=== PATIENT | female | born 1955 | race Hispanic/Latino ===

== ENCOUNTER 2019-07-15 10:03 | Outpatient (CLI) | payer BC, SELFPAY ==
--- NOTE | ~2019-07-15 | XR_ITS ---
EXAMINATION: XR chest 2V 07/15/2019 10:19 INDICATION: Pneumonia, cough and shortness of breath. PROCEDURE: 2 view chest COMPARISON: Comparison to multiple prior studies sequentially, with oldest reviewed study dated 08/2015. FINDINGS: The lungs are clear. The cardiomediastinal silhouette is within normal limits. There are no pleural effusions. There is no pneumothorax suspected. IMPRESSION: 1: NO ACUTE CARDIOPULMONARY DISEASE. Reviewed, dictated and finalized at location B. 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
== END 2019-07-15 10:04 | disposition home or self-care (01) ==
LOC: ANHIMG 10:07
PROVIDERS: PCP Internal Medicine; Visit Provider Internal Medicine
DX: J18.9 Pneumonia, unspecified organism (principal)
CPT/HCPCS: 71046

== ENCOUNTER → 2019-12-28 12:42 | Outpatient (CLI) | payer BC, SELFPAY ==
--- NOTE | ~2019-12-28 | MM_ITS ---
EXAMINATION: MM screening elliott BI w billy HISTORY: Screening mammogram TECHNIQUE: Craniocaudal and mediolateral oblique 3-D tomosynthesis images were obtained and synthetic 2-D images were generated. CAD analysis was submitted and interpreted. COMPARISON: 12/03/2018, 11/23/2017, 11/17/2016 bilateral digital screening mammogram examinations BREAST PARENCHYMAL COMPOSITION: There are scattered areas of fibroglandular density. FINDINGS: There is no evidence of suspicious mass, calcification, or architectural distortion to sugg est malignancy in either breast. There has been no suspicious interval change. IMPRESSION: 1. No mammographic evidence of malignancy. 2. Recommend routine screening mammography in one year. BI-RADS Category 1: Negative Reviewed, dictated and finalized at location A.
== END ==
PROVIDERS: Visit Provider Nurse Practitioner
DX: Z12.31 Encounter for screening mammogram for malignant neoplasm of breast (principal)
CPT/HCPCS: 77063; 77067

== ENCOUNTER 2020-04-09 00:06 | Outpatient (CLI) | payer BC, SELFPAY ==
[2020-04-09 20:45] LABS: SARS-CoV-2 RNA PCR Negative
== END 2020-04-09 00:07 | disposition home or self-care (01) ==
LOC: ANHCOVIDDT 00:06
PROVIDERS: PCP Internal Medicine; Visit Provider Internal Medicine Gastroenterology
DX: Z01.812 Encounter for preprocedural laboratory examination (principal); Z20.828 Contact with and (suspected) exposure to other viral communicable diseases
CPT/HCPCS: 87635; C9803; U0003

== ENCOUNTER 2020-04-12 00:38 | Day surgery (SDC) | payer BC, SELFPAY ==
[2020-04-03 08:43] VITALS: BMI 28.0
[2020-04-12 06:52] VITALS: BP 121/84; PULSE 84; RESP 20; TEMP 36.6; O2SAT 97
[2020-04-12] MEDS: LACTATED RINGERS 1,000 ML 150 ML IV CONT (07:10)
--- NOTE | 2020-04-12 07:43 | WPDANESEPPF ---
Anes - Initial Pre Proc Eval Procedure: Operation Date: 04/12/20 08:00 Proposed Procedures p Screening Colonoscopy - Sundeep Ha DO Date/Time: 04/12/20 07:43 Surgeon: Sundeep Ha DO Pre Op Diagnosis: Neoplasm Screening Patient Data Age: 64 Gender: F Height: 5 ft 2 in Weight: 69.2 kg Last Vital Signs Temp 97.9 F 04/12/20 06:52 Pulse 84 04/12/20 06:52 Resp 20 04/12/20 06:52 BP 121/84 04/12/20 06:52 Pulse Ox 97 04/12/20 06:52 Allergies Allergy/AdvReac Type Severity Reaction Status Date / Time No Known Allergies Allergy Verified 04/12/20 06:47 Home Medications Medication Instructions Recorded Confirmed Type ibandronate 150 mg tablet 150 mg PO MONTHLY #1 tablet 10/21/19 04/03/20 Rx alprazolam 0.5 mg tablet 0.5 mg PO DAILY PRN #30 tablet 02/22/20 04/12/20 Rx amlodipine 5 mg tablet 5 mg PO DAILY #90 tablet 02/22/20 04/03/20 Rx cholecalciferol (vitamin D3) 50 50 mcg PO DAILY #1 cap 02/22/20 04/03/20 Rx mcg (2,000 unit) capsule escitalopram oxalate 10 mg tablet See Rx Instructions .ROUTE 02/22/20 04/03/20 Rx .COMPLEX #30 tablet liraglutide (weight loss) 3 mg/0.5 See Rx Instructions SUBCUT 02/22/20 04/03/20 Rx mL (18 mg/3 mL) subcut pen injector .COMPLEX #15 ml omeprazole 40 mg capsule,delayed 40 mg PO DAILY #90 cap 02/22/20 04/03/20 Rx release pen needle, diabetic 33 gauge x #100 ea 03/05/20 Rx 1/4 levocetirizine [Xyzal] 5 mg PO DAILY 04/03/20 04/03/20 History Patient hx anesthesia problems: none Family hx anesthesia problems: none PMFSH Past Medical History Medical History (Updated 04/12/20 @ 07:42 by Jesus Ramos MD) Arthritis Essential hypertension Gastroesophageal reflux disease Hyperlipidemia Family History Family History Father Family history of osteoporosis Family history of cardiovascular disease Patient's father is in good health, Onset Age: 85 Acute myocardial infarction Mother Hypertension Patient's mother is in good health Family history of arthritis Family history of elevated blood lipids Social History Social History Smoking packs per day: 1 Smoking cigarettes per day: 20.0 Years smoked: 35 Smoking pack-years: 35.00 Smoking status: Former smoker Tobacco type: cigarettes Second hand tobacco smoke exposure: No Smoking end date: 05/11/00 Alcohol intake: never Substance use: never Substance use type: does not use Living arrangements: with family Spiritual care concerns: No Anes - Eval Final PreProcedure Day of Procedure 04/12/20 07:43 Patient weight: overweight Heart: regular rate and rhythm Lungs: clear to auscultation Airway: Mallampati scale class II Neurological: alert and oriented Last oral intake: >/= 8 hours ASA classification: III Emergent: no Anesthetic plan: proceed Anesthesia type and monitoring: general GIVS and standard monitoring Informed Consent: The patient's anesthetic plan and its attendant risks and benefits were discussed with the patient/family/POA. Questions were solicited and answers provided to the satisfaction of the patient/family/POA.
[2020-04-12] MEDS: ONDANSETRON INJ 4 MG/2 ML VIAL IV PUSH ×2 (08:01→12:05)
--- NOTE | 2020-04-12 09:53 | WPDGICN ---
Assessment and Plan Assessment and plan (1) Encounter for screening colonoscopy: Code(s): Z12.11 - Encounter for screening for malignant neoplasm of colon Status: Acute (2) History of colon polyps: Code(s): Z86.010 - Personal history of colonic polyps Status: Acute Assessment and Plan: Patient has a history of colon polyps 6 years ago. Plan is for surveillance colonoscopy now and to be considered in the future. GI Consult Note Consult date/time: 04/12/20 09:53 HPI: Johanny Odell is a 64 year old female Seen in evaluation in Dr. Ha's incapacitation today. Patient presents for colonoscopy. Patient has a history of colon polyps removed by Dr. street 6 years ago. She states that her current weight appetite bowel movements are normal. She denies abdominal pain. She has had no bleeding. Family history is noncontributory. [facility] Past Medical History Medical History (Updated 04/12/20 @ 09:55 by Sundeep Workman MD) Arthritis Essential hypertension Gastroesophageal reflux disease Hyperlipidemia Family History Family History Father Family history of osteoporosis Family history of cardiovascular disease Patient's father is in good health, Onset Age: 85 Acute myocardial infarction Mother Hypertension Patient's mother is in good health Family history of arthritis Family history of elevated blood lipids Social History Social History Smoking packs per day: 1 Smoking cigarettes per day: 20.0 Years smoked: 35 Smoking pack-years: 35.00 Smoking status: Former smoker Tobacco type: cigarettes Second hand tobacco smoke exposure: No Smoking end date: 05/11/00 Alcohol intake: never Substance use: never Substance use type: does not use Living arrangements: with family Spiritual care concerns: No Meds Home Medications and Allergies Home Medications Medication Instructions Recorded Confirmed Type ibandronate 150 mg tablet 150 mg PO MONTHLY #1 tablet 10/21/19 04/03/20 Rx alprazolam 0.5 mg tablet 0.5 mg PO DAILY PRN #30 tablet 02/22/20 04/12/20 Rx amlodipine 5 mg tablet 5 mg PO DAILY #90 tablet 02/22/20 04/03/20 Rx cholecalciferol (vitamin D3) 50 50 mcg PO DAILY #1 cap 02/22/20 04/03/20 Rx mcg (2,000 unit) capsule escitalopram oxalate 10 mg tablet See Rx Instructions .ROUTE 02/22/20 04/03/20 Rx .COMPLEX #30 tablet liraglutide (weight loss) 3 mg/0.5 See Rx Instructions SUBCUT 02/22/20 04/03/20 Rx mL (18 mg/3 mL) subcut pen injector .COMPLEX #15 ml omeprazole 40 mg capsule,delayed 40 mg PO DAILY #90 cap 02/22/20 04/03/20 Rx release pen needle, diabetic 33 gauge x #100 ea 03/05/20 Rx 1/4 levocetirizine [Xyzal] 5 mg PO DAILY 04/03/20 04/03/20 History Allergies Allergy/AdvReac Type Severity Reaction Status Date / Time No Known Allergies Allergy Verified 04/12/20 06:47 Vital Signs Vital Signs - 24 hr 04/12/20 06:52 Temperature 97.9 F Pulse Rate 84 Respiratory Rate 20 Blood Pressure 121/84 Pulse Oximetry 97 Exam Narrative: Exam Narrative: Physical exam reveals patient be alert. Vital signs stable. HEENT exam unremarkable. Lungs are clear to auscultation and percussion. Heart is without murmur or extra sounds. Abdominal exam bowel sounds present soft nontender with no organomegaly. Digital external rectal exam is normal.
[2020-04-12 11:45] VITALS: BP 114/72; PULSE 74; RESP 20; O2SAT 97
[2020-04-12 11:55] VITALS: BP 124/70; PULSE 73; RESP 20; O2SAT 97
[2020-04-12 12:05] VITALS: BP 118/78; PULSE 81; RESP 20; O2SAT 100
== END 2020-04-12 12:31 | disposition home or self-care (01) ==
PROVIDERS: PCP Internal Medicine; Visit Provider Internal Medicine Gastroenterology
PROC: 0DJD8ZZ Inspection of Lower Intestinal Tract, Via Natural or Artificial Opening Endoscopic (ICD-10-PCS; CPT 45378; principal; 2020-04-12 08:00)
DX: Z12.11 Encounter for screening for malignant neoplasm of colon (principal); Z86.010 Personal history of colon polyps; I10 Essential (primary) hypertension; E78.5 Hyperlipidemia, unspecified; K21.9 Gastro-esophageal reflux disease without esophagitis; Z87.891 Personal history of nicotine dependence
CPT/HCPCS: 45378; J2405; J2704; J7120

== ENCOUNTER 2020-07-13 13:32 | Outpatient (CLI) | payer BC, SELFPAY | END 2020-07-13 13:33 | disposition home or self-care (01) | LOC: ANHCOVIDVC 13:32 | PROVIDERS: PCP Internal Medicine | DX: Z23 Encounter for immunization (principal) | CPT/HCPCS: 0001A; 91300 ==

== ENCOUNTER 2020-08-03 13:21 | Outpatient (CLI) | payer BC, SELFPAY | END 2020-08-03 13:22 | disposition home or self-care (01) | LOC: ANHCOVIDVC 13:21 | PROVIDERS: PCP Internal Medicine | DX: Z23 Encounter for immunization (principal) | CPT/HCPCS: 0002A; 91300 ==

== ENCOUNTER 2020-09-17 11:42 | Outpatient (CLI) | payer BC, SELFPAY ==
--- NOTE | ~2020-09-17 | XR_ITS ---
XR_CERV2-3V_CR DATE: 09/17/2020 12:27 INDICATION: Neck and arm pain (radiculopathy) TECHNIQUE: AP, open-mouth, lateral views COMPARISON: None FINDINGS: There is normal alignment of the cervical spine. No fracture or dislocation or locked facet or prevertebral soft tissue swelling. Moderate loss of interspace height and mild spurring at C5-6, consistent with degenerative disc disea se. Remaining cervical interspaces are relatively well preserved. Uncovertebral joint spurring at C5-6. IMPRESSION: Moderate degenerative disc disease and uncovertebral joint spurring at C5-6 Reviewed, dictated and finalized at Location A. Reviewed, dictated and finalized at location A.
== END 2020-09-17 11:43 | disposition home or self-care (01) ==
PROVIDERS: PCP Internal Medicine; Visit Provider Internal Medicine
DX: M54.12 Radiculopathy, cervical region (principal); M50.322 Other cervical disc degeneration at C5-C6 level
CPT/HCPCS: 72040

== ENCOUNTER → 2021-01-30 15:49 | Outpatient (CLI) | payer BC, SELFPAY ==
--- NOTE | ~2021-01-30 | DEXA_ITS ---
Bone Density Report Name: Johanny Odell Age: 65 Sex: Female Ethnicity: Date of : 1955 Indication: postmenopausal osteoporosis; monitoring treatment; height loss; Referring Provider: Ron, Akiko Study: Bone densitometry was performed. Exam Date: January 30, 2021 Accession number: [id number] Bone Density: Region BMD T-score Z-score Classification AP Spine (L1-L4) 0.793 -2.3 -0.5 Osteopenia Femoral Neck (Left) 0.649 -1.8 -0.5 Osteopenia Total Hip (Left) 0.842 -0.8 0.2 Normal Femoral Neck (Right) 0.691 -1.4 -0.1 Osteopenia Total Hip (Right) 0.819 -1.0 0.0 Normal Total Hip Mean 0.831 -0.9 0.1 Normal World Health Organization criteria for BMD impression classify patients as: Normal (T-score at or above -1.0), Osteopenia (T-score between -1.0 and -2.5), or Osteoporosis (T-score at or below -2.5). 10-year Fracture Risk: FRAX not reported because: Treated for osteoporosis Previous Exams: Region Exam Age BMD T-score BMD Change BMD Change Date g/cm2 vs Baseline vs Previous AP Spine(L1-L4) 01/30/2021 65 0.793 -2.3 0.021 0.024* 12/03/2018 63 0.769 -2.5 -0.003 -0.050* 11/17/2016 61 0.819 -2.1 0.047* -0.004 09/11/2014 58 0.823 -2.0 0.051* 0.034* 08/13/2011 55 0.789 -2.3 0.017 -0.010 09/17/2009 53 0.800 -2.2 0.028* 0.028* 12/08/2006 51 0.772 -2.5 Total Hip(Left) 01/30/2021 65 0.842 -0.8 0.027 0.000 12/03/2018 63 0.842 -0.8 0.027 -0.025 11/17/2016 61 0.867 -0.6 0.052* -0.010 09/11/2014 58 0.878 -0.5 0.062* -0.003 08/13/2011 55 0.881 -0.5 0.066* -0.014 09/17/2009 53 0.895 -0.4 0.080* 0.080* 12/08/2006 51 0.815 -1.0 Total Hip(Right) 01/30/2021 65 0.819 -1.0 -0.011 0.010 12/03/2018 63 0.809 -1.1 -0.021 -0.028* 11/17/2016 61 0.838 -0.9 0.008 -0.023 09/11/2014 58 0.861 -0.7 0.031* -0.003 08/13/2011 55 0.863 -0.6 0.033* 0.025 09/17/2009 53 0.838 -0.8 0.009 0.009 12/08/2006 51 0.830 -0.9 *Denotes significance at 95% confidence level, LSC for AP Spine = 0.022 g/cm2, LSC for Total Hip = 0.027 g/cm2 Clinical Information Provided by Patient: Is being treated for osteopor
== END ==
PROVIDERS: PCP Internal Medicine; Visit Provider Nurse Practitioner
DX: Z13.820 Encounter for screening for osteoporosis (principal); M85.88 Other specified disorders of bone density and structure, other site; M85.851 Other specified disorders of bone density and structure, right thigh; M85.852 Other specified disorders of bone density and structure, left thigh
CPT/HCPCS: 77080

== ENCOUNTER → 2021-03-12 14:15 | Outpatient (CLI) | payer BC, SELFPAY ==
--- NOTE | ~2021-03-12 | MMUS_ITS ---
EXAMINATION: MM diagnostic elliott BI w billy, US breast BI limited HISTORY: Bilateral nipple pain TECHNIQUE: Additional 3-D tomosynthesis images of the breasts were performed and synthetic 2-D images were generated. CAD analysis was submitted and interpreted. High resolution bilateral breast ultraso und was performed. COMPARISON: Comparison to multiple prior studies sequentially, with oldest reviewed study dated 01/2016. BREAST PARENCHYMAL COMPOSITION: Breast composed of scattered areas of fibroglandular density. FINDINGS: MAMMOGRAPHIC FINDINGS: There are no suspicious masses, calcifications or architectural distortion in either breast to sugges t malignancy. ULTRASOUND: Limited bilateral breast ultrasound:. Normal heterogeneous echotexture without focal solid or cystic mass. IMPRESSION: 1. No evidence for malignancy in either breast. 2. Routine yearly screening mammogram and regular clinical breast examination are recommended. BI-RADS Category 1: Negative Reviewed, dictated and finalized at location A. IMPRESSION: 1. No evidence for malignancy in either breast. 2. Routine yearly screening mammogram and regular clinical breast examination a re recommended. BI-RADS Category 1: Negative
== END ==
PROVIDERS: Visit Provider Nurse Practitioner
DX: N64.4 Mastodynia (principal)
CPT/HCPCS: 76642; 77062; 77066; G0279

== ENCOUNTER 2021-05-24 07:45 | Outpatient (RCR) | payer BC, SELFPAY ==
[2021-05-24 12:01] VITALS: BP 139/69; PULSE 80; RESP 20; TEMP 36.4; O2SAT 99
[2021-05-24] MEDS: ACETAMINOPHEN 325 MG TABLET 650 MG PO (12:08)
[2021-05-24] MEDS: diphenhydrAMINE HCl CAP 25 MG CAPSULE PO (12:08)
[2021-05-24] MEDS: FAMOTIDINE 20 MG TABLET PO (12:08)
[2021-05-24 13:31] VITALS: BP 135/70; PULSE 70; O2SAT 99
== END 2021-05-24 17:00 ==
LOC: AMCINF 07:45
PROVIDERS: Visit Provider Internal Medicine Hematology & Oncology
DX: U07.1 COVID-19 (principal); I10 Essential (primary) hypertension
CPT/HCPCS: A9270; M0245; Q0245

== ENCOUNTER 2021-08-24 07:29 | Outpatient (CLI) | payer BC, SELFPAY ==
--- NOTE | ~2021-08-24 | XR_ITS ---
EXAM: XR lumbar spine 6V w bending HISTORY: M54.9 - Dorsalgia, unspecified RT LEG RADICULOPATHY COMPARISON: 12/17/2011. FINDINGS: Cholecystectomy clips. 5 nonrib-bearing lumbar-type vertebral bodies, with intact pedicles . Vertebral body heights maintained. 3 mm anterolisthesis of L5 on S1 that reduces slightly in extens ion. Bilateral pars defects at L5-S1. Aortic calcifications without evident aneurysm. Partially visua lized bowel gas pattern is normal. IMPRESSION: Grade 1 dynamic listhesis of L5 on S1. Bilateral L5-S1 pars defects. Reviewed, dictated and finalized at location K.
== END 2021-08-24 07:30 | disposition home or self-care (01) ==
LOC: ANHIMG 07:32
PROVIDERS: PCP Internal Medicine; Visit Provider Internal Medicine
DX: M54.9 Dorsalgia, unspecified (principal)
CPT/HCPCS: 72114

== ENCOUNTER 2022-04-08 15:01 | Emergency (ER) | payer BC, SELFPAY ==
[2022-04-08 15:10] VITALS: BP 123/68; PULSE 75; RESP 18; TEMP 36.4; O2SAT 98
--- NOTE | 2022-04-08 15:59 | ED.SKABFB ---
HPI - Skin/Abscess/Foreign Bdy General Chief complaint: Skin/Abscess/Foreign Body Stated complaint: Rash Time Seen by Provider: 04/08/22 15:52 Source: patient Mode of arrival: ambulatory Limitations: no limitations History of Present Illness HPI narrative: Patient presents today complaining of a 3 day history of rash to the right buttock that she bruises shingles. Associated symptoms include itching, pain, and bilaterally fatigue. States she gets shingles, usually on her buttock, every 2-3 months and has not had the opportunity to get a shingles vaccine because of this. Related Data Home Medications Medication Instructions Recorded Confirmed cetirizine 10 mg capsule (Zyrtec) 10 mg PO DAILY PRN Allergy Symptoms 11/26/20 04/08/22 Allergies Allergy/AdvReac Type Severity Reaction Status Date / Time No Known Allergies Allergy Verified 04/08/22 15:11 Review of Systems Review of Systems: CONSTITUTIONAL: Denies body aches, fever, chills, or sweats. EYES: Denies visual changes, redness, or discharge. ENT: Denies rhinorrhea, congestion, sore throat, or otalgia. CARDIOVASCULAR: Denies chest pain, palpitations, or edema. RESPIRATORY: Denies cough or dyspnea. GASTROINTESTINAL: Denies abdominal pain, nausea, vomiting, or diarrhea. GENITOURINARY: Denies dysuria or hematuria. SKIN: + Right buttock rash MUSCULOSKELETAL: Denies back pain, joint pain, or myalgia. NEUROLOGIC: Denies headache, numbness, tingling, or weakness. PSYCH: Denies depression or anxiety. [facility], [facility] Past Medical History Medical History Arthritis Essential hypertension Gastroesophageal reflux disease Hyperlipidemia Family History Family History Father Family history of osteoporosis Family history of cardiovascular disease Patient's father is in good health, Onset Age: 85 Acute myocardial infarction Mother Hypertension Patient's mother is in good health Family history of arthritis Family history of elevated blood lipids Social History Social History Smoking packs per day: 1 Smoking cigarettes per day: 20.0 Years smoked: 35 Smoking pack-years: 35.00 Smoking status: Unknown if ever smoked Tobacco type: cigarettes Second hand tobacco smoke exposure: No Smoking end date: 05/11/00 Alcohol intake: never Substance use: never Substance use type: does not use Spiritual care concerns: No Comments At time of signature, I have reviewed and agree with nursing past medical, surgical, social and family history unless otherwise noted. Please see nursing chart for further information. There is no relevant family history pertinent to the presenting complaint Exam Narrative: GENERAL: Well-appearing, well-nourished, and in no acute distress. HEAD: Normocephalic, atraumatic. EYES: EOMI. No redness or drainage. Conjunctivae normal. ENT: Mucous membranes pink and moist. NECK: Normal AROM. CHEST: No respiratory distress. EXTREMITIES: Normal range of motion. No edema. SKIN: Warm, dry. Capillary refill normal. Normal skin turgor. cluster of vesicles surrounded by erythema to the right medial buttock NEURO: No focal deficits. Alert and oriented x3. Gait steady. PSYCH: Normal affect. No signs of depression or anxiety. Course Course Level of Care: Express Care Visit Vital Signs Vital signs: Vital Signs Temperature 97.6 F 04/08/22 15:10 Pulse Rate 75 04/08/22 15:10 Respiratory Rate 18 04/08/22 15:10 Blood Pressure 123/68 04/08/22 15:10 Pulse Oximetry 98 04/08/22 15:10 Oxygen Delivery Room Air 04/08/22 15:10 Temperature 97.6 F 04/08/22 15:10 Pulse Rate 75 04/08/22 15:10 Respiratory Rate 18 04/08/22 15:10 Blood Pressure 123/68 04/08/22 15:10 Pulse Oximetry 98 04/08/22 15:10 Oxygen Delivery Room Air
== END 2022-04-08 16:04 | disposition home or self-care (01) ==
PROVIDERS: Emergency Provider Nurse Practitioner; PCP Internal Medicine
DX: B02.9 Zoster without complications (principal); Z87.891 Personal history of nicotine dependence; M19.90 Unspecified osteoarthritis, unspecified site; I10 Essential (primary) hypertension; K21.9 Gastro-esophageal reflux disease without esophagitis; E78.5 Hyperlipidemia, unspecified
CPT/HCPCS: 99213; G0463

== ENCOUNTER 2022-05-23 16:40 | Emergency (ER) | payer BC, SELFPAY ==
[2022-05-23 16:52] VITALS: BP 124/69; PULSE 79; RESP 18; TEMP 36.4; O2SAT 100
--- NOTE | 2022-05-23 17:02 | ED.URI ---
HPI - URI/Sore Throat General Chief Complaint: Upper Respiratory Infection Stated Complaint: sorethroat,cough Time Seen by Provider: 05/23/22 16:55 Source: patient Mode of arrival: ambulatory Limitations: no limitations History of Present Illness HPI Narrative: Ms. Odell is a 66-year-old female patient presenting to clinic today with complaints of sore throat, cough, nasal congestion, body aches, and chills x1 day. States that she had COVID at the end of April but never had symptoms as she is having now and her COVID symptoms improved. She denies any fever. She denies any shortness of breath or chest pain. MD elicited complaint: cough, sore throat and nasal congestion Related Data Home Medications Medication Instructions Recorded Confirmed cetirizine 10 mg capsule (Zyrtec) 10 mg PO DAILY PRN Allergy Symptoms 11/26/20 05/23/22 Allergies Allergy/AdvReac Type Severity Reaction Status Date / Time No Known Allergies Allergy Verified 05/23/22 16:52 Review of Systems Review of Systems: Pertinent positives per HPI. Patient denies any fever, chills, rash, headache, visual changes, dizziness, cough, shortness of breath, chest pain, palpitations, nausea, vomiting, diarrhea, constipation, abdominal pain, or any urinary issues. [facility] Past Medical History Medical History Arthritis Essential hypertension Gastroesophageal reflux disease Hyperlipidemia Family History Family History Father Family history of osteoporosis Family history of cardiovascular disease Patient's father is in good health, Onset Age: 85 Acute myocardial infarction Mother Hypertension Patient's mother is in good health Family history of arthritis Family history of elevated blood lipids Social History Social History Smoking packs per day: 1 Smoking cigarettes per day: 20.0 Years smoked: 35 Smoking pack-years: 35.00 Smoking status: Unknown if ever smoked Tobacco type: cigarettes Second hand tobacco smoke exposure: No Smoking end date: 05/11/00 Alcohol intake: never Substance use: never Substance use type: does not use Spiritual care concerns: No Comments At the time of my signature, I reviewed and agree with the nursing past medical, surgical, social, and family history. There is no relevant family history pertinent to the patient complaint. Exam Narrative: General: Well-developed, well nourished, in no apparent distress Head: Normocephalic, atraumatic Eyes: Pupils equally round and reactive to light bilaterally, EOM intact, sclera and conjunctive clear, no discharge, lids normal Ears: TMs intact and clear, ear canals clear, no drainage, grossly hearing normal. Nose: Nares patent, no discharge, no inflammation, no sinus tenderness. Mouth: Oral pharynx without lesions or masses, good dentition, MMM. Neck: Supple, trachea midline, no enlargement of anterior or posterior cervical nodes, no thyroid masses or goiter palpable. Cardio: Regular rate and rhythm, s1 and s2 normal, no murmur appreciated. Resp: Clear to auscultation bilaterally, no rhonchi, rales, wheezing or rubs Course Course Emergency Course: Portions of this record may have been created with voice recognition software. Level of Care: Express Care Visit Vital Signs Vital signs: Vital Signs Temperature 36.4 C 05/23/22 16:52 Pulse Rate 79 05/23/22 16:52 Respiratory Rate 18 05/23/22 16:52 Blood Pressure 124/69 05/23/22 16:52 Pulse Oximetry 100 05/23/22 16:52 Oxygen Delivery Room Air 05/23/22 16:52 Temperature 36.4 C 05/23/22 16:52 Pulse Rate 79 05/23/22 16:52 Respiratory Rate 18 05/23/22 16:52 Blood Pressure 124/69 05/23/22 16:52 Pulse Oximetry 100 05/23/22 16:52 Oxygen Delivery Room Air 05/23/22 16:52 Vital
== END 2022-05-23 17:30 | disposition home or self-care (01) ==
PROVIDERS: Emergency Provider Nurse Practitioner Family; PCP Internal Medicine
DX: B34.9 Viral infection, unspecified (principal); J02.0 Streptococcal pharyngitis; Z87.891 Personal history of nicotine dependence; I10 Essential (primary) hypertension; K21.9 Gastro-esophageal reflux disease without esophagitis; E78.5 Hyperlipidemia, unspecified; M19.90 Unspecified osteoarthritis, unspecified site
CPT/HCPCS: 87081; 87147; 87804; 87880; 99213; G0463

== ENCOUNTER 2022-07-02 13:33 | Outpatient (CLI) | payer BC, SELFPAY ==
--- NOTE | ~2022-07-02 | XR_ITS ---
EXAMINATION: XR chest 2V 07/02/2022 13:49 INDICATION: Preop evaluation PROCEDURE: 2 view chest COMPARISON: Comparison to multiple prior studies sequentially, with oldest reviewed study dated 09/21. FINDINGS: The lungs are clear. The cardiomediastinal silhouette is within normal limits. There are no pleural effusions. There is no pneumothorax suspected. There are cholecystectomy clips. IMPRESSION: 1: NO ACUTE CARDIOPULMONARY DISEASE. Reviewed, dictated and finalized at location B. 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
--- NOTE | 2022-07-02 13:56 | ECG_ITS ---
Measurements Intervals [place] Rate: 67 P: 70 FL: 120 QRS: 54 QRSD: 96 T: 60 QT: 396 QTc: 419 Interpretive Statements SINUS RHYTHM NO PREVIOUS ECG AVAILABLE FOR COMPARISON Electronically Signed On 07-02-2022 15:07:54 [employer] by Tamara Torres M.D.
== END 2022-07-02 13:34 | disposition home or self-care (01) ==
LOC: ANHIMG 13:36
PROVIDERS: PCP Internal Medicine; Visit Provider Nurse Practitioner Family
DX: Z01.818 Encounter for other preprocedural examination (principal)
CPT/HCPCS: 71046; 93005

== ENCOUNTER 2022-09-21 12:19 | Outpatient (CLI) | payer BC, SELFPAY ==
--- NOTE | ~2022-09-21 | CT_ITS ---
EXAMINATION: CT abdomen pelvis w con DATE: 09/21/2022 13:02 INDICATION: Abdominal pain TECHNIQUE: Computed tomography (CT) of the abdomen and pelvis was performed without intravenous contr ast. The dose-length product was 325.37 mGy-cm. Automated exposure control and iterative reconstructi on technique were employed. COMPARISON: None. FINDINGS: Lung bases are unremarkable. Heart size normal. No significant pleural or pericardial effus ion. Status post cholecystectomy with expected prominence of the bile ducts. The spleen, pancreas, ad renal glands and kidneys are unremarkable. Nonobstructive bowel pattern. Normal appendix. There is a 5.6 cm left adnexal cyst, most likely ovarian. No free fluid or free air. No significant vascular abn ormality. No lymphadenopathy. There is grade 1 spondylolisthesis at L5-S1 secondary to bilateral spon dylolysis. IMPRESSION: 1. Left adnexal cyst measuring 5.6 cm maximum dimension, most likely ovarian. Consider correlation wi ultrasound. Reviewed, dictated and finalized at location A. IMPRESSION: 1. Left adnexal cyst measuring 5.6 cm maximum dimension, most likely ovarian. C onsider correlation with ultrasound.
[2022-09-21 12:54] LABS: Estimated Glomerular Filt Rate > 60
== END 2022-09-21 12:20 | disposition home or self-care (01) ==
PROVIDERS: PCP Internal Medicine; Visit Provider Nurse Practitioner
DX: R10.9 Unspecified abdominal pain (principal)
CPT/HCPCS: 74177; Q9967

== ENCOUNTER → 2022-09-22 15:59 | Outpatient (CLI) | payer BC, SELFPAY ==
--- NOTE | ~2022-09-22 | MM_ITS ---
EXAMINATION: MM screening elliott BI w billy HISTORY: Screening mammogram TECHNIQUE: Craniocaudal and mediolateral oblique 3-D tomosynthesis images were obtained and synthetic 2-D images were generated. CAD analysis was submitted and interpreted. COMPARISON: 03/12/2021, 12/28/2019, 12/03/2018 BREAST PARENCHYMAL COMPOSITION:There are scattered areas of fibroglandular density. FINDINGS: No suspicious mass, calcification, or architectural distortion are identified in either daljit ast to suggest malignancy. There has been no suspicious interval change. IMPRESSION: No mammographic evidence of malignancy. Recommend routine screening mammography in one year. BI-RADS Category 1: Negative Reviewed, dictated and finalized at location .
== END ==
PROVIDERS: PCP Nurse Practitioner; Visit Provider Nurse Practitioner
DX: Z12.31 Encounter for screening mammogram for malignant neoplasm of breast (principal)
CPT/HCPCS: 77063; 77067

== ENCOUNTER 2022-09-25 07:35 | Outpatient (CLI) | payer BC, SELFPAY ==
--- NOTE | ~2022-09-25 | US_ITS ---
EXAMINATION: US pelvic complete DATE: 09/25/2022 08:31 INDICATION: Left adnexal cyst Comparison: Comparison to multiple prior studies sequentially, with oldest reviewed study dated 11/27. TECHNIQUE: Multiple transabdominal and endovaginal sonographic images of the pelvis performed. FINDINGS: The uterus measures 5.1 x 2.9 x 2.9 cm. The endometrial complex measures 4 mm. The right ovary measures 2 x 1.2 x 1.3 cm and the left ovary measures 5.6 x 3.8 x 4.5 cm. There is a left ovarian cyst measuring 5.3 x 3.6 x 4 cm There are small follicles in each ovary. Normal doppler signal in both ovaries. There is no free fluid in the pelvis. There are no abnormal masses seen on either side. IMPRESSION: 1. Simple left ovarian cyst measuring 5.3 cm. Reviewed, dictated and finalized at location D.
== END 2022-09-25 07:36 ==
LOC: GOSHIMG 07:37
PROVIDERS: PCP Nurse Practitioner; Visit Provider Nurse Practitioner
DX: N94.9 Unspecified condition associated with female genital organs and menstrual cycle (principal); N83.202 Unspecified ovarian cyst, left side
CPT/HCPCS: 76856

== ENCOUNTER 2022-11-27 10:08 | Outpatient (CLI) | payer BC, SELFPAY ==
--- NOTE | ~2022-11-27 | XR_ITS ---
AP and lateral views of the right tibia/fibula Clinical History: Pain Findings: No acute fracture or dislocation is seen. Osseous alignment is anatomic. Joint spaces are p reserved without significant erosive or degenerative change. Soft tissues are unremarkable. Impression: Unremarkable right tib-fib radiographs. Reviewed, dictated and finalized at [facility]. Impression: Unremarkable right tib-fib radiographs.
--- NOTE | ~2022-11-27 | XR_ITS ---
AP and lateral views of the right hip Clinical history: Pain Findings: No acute fracture or dislocation is seen. Osseous alignment is anatomic. The right hip join t and right SI joint are preserved. Soft tissues are unremarkable. Impression: No significant abnormality is seen. Reviewed, dictated and finalized at [facility]. Impression: No significant abnormality is seen.
== END 2022-11-27 10:09 | disposition home or self-care (01) ==
PROVIDERS: PCP Family Medicine; Visit Provider Family Medicine
DX: M13.0 Polyarthritis, unspecified (principal); M25.559 Pain in unspecified hip; M25.569 Pain in unspecified knee; M79.606 Pain in leg, unspecified
CPT/HCPCS: 73502; 73562; 73590

== ENCOUNTER 2023-01-07 18:01 | Emergency (ER) | payer BC, SELFPAY ==
[2023-01-07 18:13] VITALS: BP 152/73; PULSE 65; RESP 16; TEMP 36.5; O2SAT 100
[2023-01-07 18:14] VITALS: BP 152/73; PULSE 65; RESP 16; TEMP 36.5; O2SAT 100
--- NOTE | 2023-01-07 18:28 | ED.GENADULT ---
HPI - General Adult General Chief complaint: Urogenital-Female Stated complaint: Lt Side Pain Source: patient and RN notes reviewed Mode of arrival: ambulatory Limitations: no limitations History of Present Illness HPI narrative: 67 y/o female presented with c/o LUQ abdominal pain, onset today after lunch. States she ate a subway sandwich prior to the abdominal pain, and then had one episode of diarrhea. Pain is sharp stabbing and intermittent but frequent. Rates pain 8/10. Starting to feel nausea. Denies rash or injury, denies vomiting, hematochezia, melena, fever. Last meal was at lunch time. Has had similar symptoms a few months ago, but states it has never been this painful. Hx cholecystectomy; GERD Related Data Home Medications Medication Instructions Recorded Confirmed cetirizine 10 mg capsule (Zyrtec) 10 mg PO DAILY PRN Allergy Symptoms 11/26/20 01/07/23 ibandronate 150 mg tablet 150 mg PO DAILY 01/07/23 01/07/23 Allergies Allergy/AdvReac Type Severity Reaction Status Date / Time No Known Allergies Allergy Verified 01/07/23 18:12 Review of Systems Review of Systems: CONSTITUTIONAL: Denies body aches, fever, chills ENT: Denies rhinorrhea, congestion CARDIOVASCULAR: Denies chest pain, palpitations, or edema. RESPIRATORY: Denies cough or dyspnea. GASTROINTESTINAL: Endorses LUQ abdominal pain, nausea, Denies vomiting, diarrhea, hematochezia, melena GENITOURINARY: Denies dysuria, hematuria, or CVA tenderness. SKIN: Denies rash, itching, or wounds. MUSCULOSKELETAL: Denies back pain, joint pain, or myalgia. NEUROLOGIC: Denies headache, numbness, tingling, or weakness. All systems reviewed & are unremarkable except as noted in HPI and below PMFSH Past Medical History Medical History Arthritis Essential hypertension Gastroesophageal reflux disease Hyperlipidemia Family History Family History Father Family history of osteoporosis Family history of cardiovascular disease Patient's father is in good health, Onset Age: 85 Acute myocardial infarction Mother Hypertension Patient's mother is in good health Family history of arthritis Family history of elevated blood lipids Social History Social History Smoking packs per day: 1 Smoking cigarettes per day: 20.0 Years smoked: 35 Smoking pack-years: 35.00 Smoking status: Former smoker Tobacco type: cigarettes Second hand tobacco smoke exposure: No Smoking end date: 05/11/00 Alcohol intake: former Alcohol use details: occasionally Substance use: never Substance use type: does not use Lack of Transportation: No Lack of Food: Never True Current Housing: I Have Housing Concerned About Future Housing: No Difficulty Paying Gas/Electric Bills: No Difficulty Paying for Meds: No Currently Unemployed: No Education: High School Diploma/GED Difficulty w/ Childcare or Family Care: No Living arrangements: with family Spiritual care concerns: No Comments At time of signature, I have reviewed and agree with nursing past medical, surgical, social and family history unless otherwise noted. Please see nursing chart for further information. There is no relevant family history pertinent to the presenting complaint Exam Narrative: GENERAL: Appears in pain, in no acute distress. EYES: EOMI. Conjunctivae normal. ENT: Mucous membranes pink and moist. CHEST: No respiratory distress. Clear to auscultation. HEART: Regular rate and rhythm. No murmur appreciated. Normal peripheral pulses. ABDOMEN: abd soft, nondistended, normal active bowel sounds. Tender abdomen: LUQ; guarding noted and frequent grimace. No redness or bruising, no rebound tenderness, asymmetry, pulsatile mass, or rigidity EXTREMITIES: Normal range of motion. No edema. SKIN: Warm, dry, n
== END 2023-01-07 18:55 | disposition short-term general hospital (02) ==
LOC: EXPTROY 18:03
PROVIDERS: Emergency Provider Nurse Practitioner Family; PCP Family Medicine
DX: R10.12 Left upper quadrant pain (principal); Z87.891 Personal history of nicotine dependence; M19.90 Unspecified osteoarthritis, unspecified site; I10 Essential (primary) hypertension; K21.9 Gastro-esophageal reflux disease without esophagitis; E78.5 Hyperlipidemia, unspecified
CPT/HCPCS: 81003; 87086; 99213; G0463

== ENCOUNTER 2023-01-07 19:09 | Emergency (ER) | payer BC, SELFPAY ==
[2023-01-07 19:13] VITALS: BP 165/80; PULSE 67; RESP 16; TEMP 36.2; O2SAT 100
--- NOTE | 2023-01-07 19:37 | PC.NURSE ---
Pt approached triage desk and states the pain is easing up. Pt states Im just going to call my doctor tomorrow . Pt ambulated out of ED with steady gait in no obvious distress.
== END 2023-01-07 19:37 | disposition left against medical advice (07) ==
LOC: ANHED 19:41
PROVIDERS: PCP Family Medicine
DX: R10.12 Left upper quadrant pain (principal)
CPT/HCPCS: 99199

== ENCOUNTER 2023-01-26 09:01 | Outpatient (CLI) | payer BC, SELFPAY ==
--- NOTE | ~2023-01-26 | US_ITS ---
Abdominal Sonogram: Real-time sonographic imaging of the abdomen was performed. Clinical History: Abdominal pain Findings: The liver appears normal with no evidence of mass lesion or bile duct dilatation. Main por jolanta vein demonstrates normal direction of flow. The spleen is normal in size without evidence of foca l lesion. The gallbladder is absent, compatible prior cholecystectomy. The common bile duct measures 16 mm. The visualized pancreas, aorta, and IVC are unremarkable. The right kidney measures 9.7 cm in length and the left kidney measures 9.9 cm. There is no hydronephrosis or renal calculus. Impression: Dilated common bile duct, possibly related to prior cholecystectomy. Reviewed, dictated and finalized at location M. Impression: Dilated common bile duct, possibly related to prior cholecystectomy.
== END 2023-01-26 09:02 ==
LOC: GOSHIMG 09:02
PROVIDERS: PCP Family Medicine; Visit Provider Internal Medicine Gastroenterology
DX: R10.9 Unspecified abdominal pain (principal)
CPT/HCPCS: 76700

== ENCOUNTER 2023-03-26 01:05 | Day surgery (SDC) | payer BC, SELFPAY ==
[2023-03-13 11:38] VITALS: BMI 24.5
--- NOTE | 2023-03-24 10:19 | SUR.PREOP ---
Patient called regarding upcoming procedure. Message left on patient's voicemail regarding preop instructions, appointment times, and procedure prep.
[2023-03-26 07:42] VITALS: BP 133/68; PULSE 69; RESP 16; TEMP 36.6; O2SAT 97
--- NOTE | 2023-03-26 07:52 | PM.HPGS ---
History of Present Illness History of Present Illness Consent: Risks, benefits, and alternatives have been discussed and questions answered. Patient agrees to proceed with procedure. Chief complaint: epigastric pain, Right Upper Quad Pain, GERD, Narrative: Johanny Odell is a 67 year old female Complains of epigastric bloating. She states after eating she becomes distended and gassy. She states she feels this more in the upper portion of her abdomen. She has had no relief by taking Gas-X. She has had no recent change in diet. Weight has remained stable. She has had no bleeding. She does have a history of heartburn. Her dose of Nexium has been crease to twice a day with no change in symptoms. Because of upper abdominal bloating she presents today for EGD. Review of Systems Review of Systems: Review of systems noncontributory. [facility] Past Medical History Medical History (Updated 02/12/23 @ 10:12 by Aurea Vega APRN) Arthritis Belching symptom Bloating Colon cancer screening Common bile duct dilatation Elevated lipase Essential hypertension Gastroesophageal reflux disease History of Helicobacter pylori infection Hyperlipidemia RUQ pain Family History Family History Father Family history of osteoporosis Family history of cardiovascular disease Patient's father is in good health, Onset Age: 85 Acute myocardial infarction Mother Hypertension Patient's mother is in good health Family history of arthritis Family history of elevated blood lipids Social History Social History Smoking packs per day: 1 Smoking cigarettes per day: 20.0 Years smoked: 35 Smoking pack-years: 35.00 Smoking status: Former smoker Tobacco type: cigarettes Second hand tobacco smoke exposure: No Smoking end date: 05/11/00 Alcohol intake: former Alcohol use details: occasionally Substance use: never Substance use type: does not use Lack of Transportation: No Lack of Food: Never True Current Housing: I Have Housing Concerned About Future Housing: No Difficulty Paying Gas/Electric Bills: No Difficulty Paying for Meds: No Currently Unemployed: No Education: High School Diploma/GED Difficulty w/ Childcare or Family Care: No Living arrangements: with family Spiritual care concerns: No Meds Home Medications and Allergies Home Medications Medication Instructions Recorded Confirmed Type cetirizine 10 mg capsule (Zyrtec) 10 mg PO DAILY PRN Allergy Symptoms 11/26/20 03/26/23 History fluticasone propionate 50 2 spray intranasal DAILY #16 grams 06/30/22 03/26/23 Rx mcg/actuation nasal spray,suspension (Flonase Allergy Relief) amlodipine 5 mg tablet 5 mg PO DAILY #90 tabs 07/17/22 03/26/23 Rx escitalopram oxalate 20 mg tablet 20 mg PO DAILY #90 tabs 08/01/22 03/26/23 Rx alprazolam 0.5 mg tablet 0.5 mg PO BID PRN anxiety #30 tabs 09/17/22 03/26/23 Rx ibandronate 150 mg tablet 150 mg PO MONTHLY 01/14/23 03/26/23 History hydrocodone 5 mg-acetaminophen 325 1 tablet PO Q8H PRN pain #30 tabs 01/27/23 03/26/23 Rx mg tablet esomeprazole magnesium 40 mg 40 mg PO DAILY #30 caps 02/12/23 03/26/23 Rx capsule,delayed release (Nexium) oxybutynin chloride 5 mg tablet 5 mg PO QAM #30 tabs 03/10/23 03/26/23 Rx Allergies Allergy/AdvReac Type Severity Reaction Status Date / Time No Known Allergies Allergy Verified 03/26/23 07:40 Vital Signs Vital Signs - 24 hr 03/26/23 07:42 Temperature 97.9 F Pulse Rate 69 Respiratory Rate 16 Blood Pressure 133/68 Pulse Oximetry 97 Oxygen Delivery Room Air Exam Narrative: Physical exam reveals patient to be alert. Vital signs stable. HEENT exam is unremarkable. Lungs are clear to auscultation and percussion. Heart is without murmur or extra sounds. Abdomen bowel sounds are present soft nontender wit
[2023-03-26] MEDS: LACTATED RINGERS 1,000 ML 150 ML IV CONT (07:54)
--- NOTE | 2023-03-26 08:16 | WPDANESEPPF ---
Anes - Initial Pre Proc Eval Procedure: Operation Date: 03/26/23 08:30 Proposed Procedures p Esophagogastroduodenoscopy - Sundeep Workman MD Date/Time: 03/26/23 08:16 Surgeon: Sundeep Workman MD Pre Op Diagnosis: epigastric pain, Right Upper Quad Pain, GERD, Patient Data Age: 67 Gender: F Height: 1.55 m Weight: 63.4 kg Last Vital Signs Temp 97.9 F 03/26/23 07:42 Pulse 69 03/26/23 07:42 Resp 16 03/26/23 07:42 BP 133/68 03/26/23 07:42 Pulse Ox 97 03/26/23 07:42 O2 Del Method Room Air 03/26/23 07:42 Allergies Allergy/AdvReac Type Severity Reaction Status Date / Time No Known Allergies Allergy Verified 03/26/23 07:40 Home Medications Medication Instructions Recorded Confirmed Type cetirizine 10 mg capsule (Zyrtec) 10 mg PO DAILY PRN Allergy Symptoms 11/26/20 03/26/23 History fluticasone propionate 50 2 spray intranasal DAILY #16 grams 06/30/22 03/26/23 Rx mcg/actuation nasal spray,suspension (Flonase Allergy Relief) amlodipine 5 mg tablet 5 mg PO DAILY #90 tabs 07/17/22 03/26/23 Rx escitalopram oxalate 20 mg tablet 20 mg PO DAILY #90 tabs 08/01/22 03/26/23 Rx alprazolam 0.5 mg tablet 0.5 mg PO BID PRN anxiety #30 tabs 09/17/22 03/26/23 Rx ibandronate 150 mg tablet 150 mg PO MONTHLY 01/14/23 03/26/23 History hydrocodone 5 mg-acetaminophen 325 1 tablet PO Q8H PRN pain #30 tabs 01/27/23 03/26/23 Rx mg tablet esomeprazole magnesium 40 mg 40 mg PO DAILY #30 caps 02/12/23 03/26/23 Rx capsule,delayed release (Nexium) oxybutynin chloride 5 mg tablet 5 mg PO QAM #30 tabs 03/10/23 03/26/23 Rx Patient hx anesthesia problems: none Family hx anesthesia problems: none Results Review: All pre-operative results and documents have been reviewed as part of the pre-operative evaluation. [facility] Past Medical History Medical History (Updated 02/12/23 @ 10:12 by Aurea Vega APRN) Arthritis Belching symptom Bloating Colon cancer screening Common bile duct dilatation Elevated lipase Essential hypertension Gastroesophageal reflux disease History of Helicobacter pylori infection Hyperlipidemia RUQ pain Family History Family History Father Family history of osteoporosis Family history of cardiovascular disease Patient's father is in good health, Onset Age: 85 Acute myocardial infarction Mother Hypertension Patient's mother is in good health Family history of arthritis Family history of elevated blood lipids Social History Social History Smoking packs per day: 1 Smoking cigarettes per day: 20.0 Years smoked: 35 Smoking pack-years: 35.00 Smoking status: Former smoker Tobacco type: cigarettes Second hand tobacco smoke exposure: No Smoking end date: 05/11/00 Alcohol intake: former Alcohol use details: occasionally Substance use: never Substance use type: does not use Lack of Transportation: No Lack of Food: Never True Current Housing: I Have Housing Concerned About Future Housing: No Difficulty Paying Gas/Electric Bills: No Difficulty Paying for Meds: No Currently Unemployed: No Education: High School Diploma/GED Difficulty w/ Childcare or Family Care: No Living arrangements: with family Spiritual care concerns: No Anes - Eval Final PreProcedure Day of Procedure 03/26/23 08:16 Patient weight: normal Heart: regular rate and rhythm Lungs: clear to auscultation Airway: Mallampati scale class II Neurological: alert and oriented Last oral intake: >/= 8 hours ASA classification: III Emergent: no Anesthetic plan: proceed Anesthesia type and monitoring: general GIVS and standard monitoring Results Review: All pre-operative results and documents have been reviewed as part of the pre-operative evaluation. Informed Consent: The patient's anesthetic plan and its attendant risks and benefits w
[2023-03-26 08:32] VITALS: BP 119/62; PULSE 69; RESP 20; O2SAT 100
[2023-03-26 08:42] VITALS: BP 135/69; PULSE 68; RESP 13; O2SAT 99
[2023-03-26 08:52] VITALS: BP 144/67; PULSE 72; RESP 19; O2SAT 100
== END 2023-03-26 09:00 | disposition home or self-care (01) ==
PROVIDERS: PCP Family Medicine; Visit Provider Internal Medicine Gastroenterology
PROC: 0DJ08ZZ Inspection of Upper Intestinal Tract, Via Natural or Artificial Opening Endoscopic (ICD-10-PCS; CPT 43235; principal; 2023-03-26 08:30)
DX: R10.13 Epigastric pain (principal); K21.9 Gastro-esophageal reflux disease without esophagitis; Z87.19 Personal history of other diseases of the digestive system; I10 Essential (primary) hypertension; E78.5 Hyperlipidemia, unspecified; Z79.891 Long term (current) use of opiate analgesic; Z87.891 Personal history of nicotine dependence
CPT/HCPCS: 43239; 87081; J2704; J7120

== ENCOUNTER 2023-06-12 13:13 | Outpatient (CLI) | payer BC, SELFPAY ==
--- NOTE | ~2023-06-12 | US_ITS ---
EXAMINATION: US pelvic complete, US soft tissue abdomen DATE: 06/12/2023 13:40 INDICATION: Palpable left upper quadrant abdominal mass. Follow-up ovarian cyst. TECHNIQUE: 1. Multiple transabdominal and endovaginal sonographic images of the pelvis were obtained. 2. Multiple transabdominal sonographic images of the region of concern at the left upper quadrant wer e obtained. COMPARISON: CT dated 09/21/2022 and ultrasound dated 09/25/2022 FINDINGS: Pelvis: The uterus measures 5.0 x 2.2 x 3.5 cm. The endometrial complex measures 3 mm in thickness. The righ t ovary is not visualized. The left ovary measures 5.0 x 3.6 x 3.4 cm. There is a 4.2 x 2.9 x 2.5 cm simple appearing anechoic cyst at the left ovary. Vascular flow identified in the left ovary on color Doppler. There is no free fluid in the pelvis. Left upper quadrant of the abdomen: There is a normal appearance to the subcutaneous fat at the region of concern. There are couple shado wing ribs underlying the region of concern, which extends within 8 mm the skin surface. There are no other abnormal masses or fluid collections identified. IMPRESSION: 1. No significant interval change in a 5.0 cm simple appearing left ovarian cyst. 2. No abnormal masses or fluid collections identified at the left quadrant region of concern. Reviewed, dictated and finalized at location A. TION DESCRIPTION MANAGER IMPRESSION: 1. No significant interval change in a 5.0 cm simple appearing left ovarian cys t. 2. No abnormal masses or fluid collections identified at the left quadrant jani on of concern.
== END 2023-06-12 13:14 ==
LOC: MICIMG 13:14
PROVIDERS: PCP Family Medicine; Visit Provider Nurse Practitioner
DX: N83.202 Unspecified ovarian cyst, left side (principal)
CPT/HCPCS: 76705; 76856

== ENCOUNTER 2023-06-19 10:24 | Outpatient (CLI) | payer BC, SELFPAY ==
--- NOTE | ~2023-06-19 | DEXA_ITS ---
Bone Density Report Name: AIXA OLIVAS Age: 67 Sex: Female Ethnicity: White Date of : 1955 Indication: postmenopausal; screening for osteoporosis; parental hip fracture; height loss; Referring Provider: ADALI MARTE Study: Bone densitometry was performed. Exam Date: June 19, 2023 Accession number: [id number] Bone Density: Region BMD T-score Z-score Classification AP Spine(L1-L4) 0.727 -2.9 -1.0 Osteoporosis Femoral Neck (Left) 0.646 -1.8 -0.2 Osteopenia Total Hip (Left) 0.819 -1.0 0.4 Normal Femoral Neck (Right) 0.643 -1.9 -0.2 Osteopenia Total Hip (Right) 0.794 -1.2 0.2 Osteopenia Total Hip Mean 0.806 -1.1 0.3 Osteopenia World Health Organization criteria for BMD impression classify patients as: Normal (T-score at or above -1.0), Osteopenia (T-score between -1.0 and -2.5), or Osteoporosis (T-score at or below -2.5). 10-year Fracture Risk: FRAX not reported because: Some T-score for Spine Total or Hip Total or Femoral Neck at or below -2.5 Clinical Information Provided by Patient: Parent has had a hip fracture Has used the following medications: Boniva (i.e. ibandronate), Vitamin D Patient maximum height was 62.0 Menopause Age: 45 No regular weight bearing exercise Drinks caffeinated beverages Onset of menses at age 16 Number of children 2 Impression: The patient has osteoporosis, based on the Total Spine T-score. The patient has risk factors, including: parental hip fracture. Discussion: INCREASED RISK OF FRACTURE. BONE DENSITY IS UNDESIRABLY LOW AT ONE OR MORE SKELETAL SITES, CONSISTENT WITH POSTMENOPAUSAL OSTEOPOROSIS. This patient's lowest T-score meets the World Health Organization's (WHO) criteria for osteoporosis at one or more sites (T-score -2.5 or below). In untreated patients, the risk of osteoporotic fracture increases approximately two-fold for each 1.0 SD decrease in T-score. Low bone density is not the only risk factor for fracture; also consider factors such as patient's age, frailty or poor health, risk of falling, risk of injury, previous osteoporotic fracture, family history of osteoporosis, cigarette smoking, low body weight, etc. Not everyone with low bone mineral density has osteoporosis; osteomalacia and other metabolic bone disorders should also be considered. Patients who have osteoporosis should be evaluated for specific diseases and conditions (secondary causes) that may cause or contribute to bone loss. The [place] Association of Clinical Endocrinologists (AACE) and National Osteoporosis Foundation (NOF) recommend pharmacologic intervention for all postmenopausal women whose T-score is in this range. The patient should follow a healthful lifestyle (good nutrition with adequate calcium and vitamin D, and appropriate weight-bearing exercise).
== END 2023-06-19 10:25 | disposition home or self-care (01) ==
LOC: ANHIMG 10:31
PROVIDERS: PCP Family Medicine; Visit Provider Obstetrics & Gynecology Gynecology
DX: M81.0 Age-related osteoporosis without current pathological fracture (principal); Z78.0 Asymptomatic menopausal state
CPT/HCPCS: 77080

== ENCOUNTER 2023-10-01 14:04 | Outpatient (CLI) | payer BC, SELFPAY ==
--- NOTE | ~2023-10-01 | MM_ITS ---
EXAMINATION: MM screening elliott BI w billy HISTORY: Screening TECHNIQUE: Craniocaudal and mediolateral oblique 3-D tomosynthesis images were obtained and synthetic 2-D images were generated. CAD analysis was submitted and interpreted. COMPARISON: Comparison to multiple prior studies sequentially, with oldest reviewed study dated 11/17. BREAST PARENCHYMAL COMPOSITION: There are scattered areas of fibroglandular density. FINDINGS: There is no evidence of suspicious mass, calcification, or architectural distortion to sugg est malignancy in either breast. There has been no suspicious interval change. IMPRESSION: 1. No mammographic evidence of malignancy. 2. Recommend routine screening mammography in one year. BI-RADS Category 1: Negative Reviewed, dictated and finalized at location A.
== END 2023-10-01 14:05 ==
PROVIDERS: PCP Nurse Practitioner; Visit Provider Nurse Practitioner
DX: Z12.31 Encounter for screening mammogram for malignant neoplasm of breast (principal)
CPT/HCPCS: 77063; 77067

== ENCOUNTER 2023-12-15 13:29 | Outpatient (CLI) | payer BC, SELFPAY ==
--- NOTE | ~2023-12-15 | XR_ITS ---
Clinical Indication: Cough, shortness of breath PA and lateral views of the chest: Comparison: 06/30/2022 Findings: The lungs are clear, without evidence of focal consolidation or pleural effusion. Cardiome diastinal silhouette is within normal limits. Bones and soft tissues are unremarkable. Impression: Normal chest. Reviewed, dictated and finalized at location . Impression: Normal chest.
== END 2023-12-15 13:30 ==
PROVIDERS: PCP Family Medicine; Visit Provider Nurse Practitioner Family
DX: R05.9 Cough, unspecified (principal); R06.02 Shortness of breath
CPT/HCPCS: 71046

== ENCOUNTER 2024-03-03 09:57 | Outpatient (CLI) | payer BC, SELFPAY ==
--- NOTE | ~2024-03-03 | XR_ITS ---
[id number] Ordering provider: Ksenia Mohan APRN History: . NECK PAIN HX OF SURGERY . Comparison: None. FINDINGS: VERTEBRAL BODIES: Normal height and alignment. No visible fracture or subluxation. The dens is intact . Postoperative changes at the level of C5 and C6. DISK SPACES: Well maintained. Disc spacer at the level of C5-C6. Multilevel uncovertebral joint osteo arthritic changes. PARASPINOUS SOFT TISSUES: No prevertebral soft tissue swelling. IMPRESSION: No acute osseous abnormality cervical spine. Postoperative changes at the level of C5-C6. Reviewed, dictated and finalized at location A.
--- NOTE | ~2024-03-03 | XR_ITS ---
XR hand RT min 3V Ordering provider: Ksenia Mohan APRN History: . NON TRAUMA RIGHT HAND PAIN . Comparison: None. FINDINGS: BONES: No acute fracture or dislocation. JOINT SPACES: Osteoarthritic changes of the distal interphalangeal joints of the first and second fin gers. SOFT TISSUES: Normal. IMPRESSION: No acute osseous abnormality right hand. Reviewed, dictated and finalized at location A.
== END 2024-03-03 09:58 | disposition home or self-care (01) ==
PROVIDERS: PCP Family Medicine; Visit Provider Nurse Practitioner Family
DX: M54.2 Cervicalgia (principal); M79.641 Pain in right hand
CPT/HCPCS: 72040; 73130

== ENCOUNTER 2025-02-14 12:59 | Outpatient (CLI) | payer MEDICARE, SELFPAY ==
--- NOTE | 2025-02-14 13:22 | ECG_ITS ---
Test Date: 2025-02-14 13:38:39 Measurements Intervals [place] Rate: 70 P: 57 WY: 139 QRS: 41 QRSD: 87 T: 63 QT: 401 QTc: 435 Interpretive Statements SINUS RHYTHM INCOMPLETE RIGHT BUNDLE BRANCH BLOCK BASELINE ARTIFACT- I, II, III, AVR, AVL, AVF, V4-V6 BORDERLINE ECG No previous ECG available for comparison Electronically Signed On 02-14-2025 13:55:41 CDT by Ajay Magana D.O.
--- OUTSIDE RECORDS SUMMARY | 2025-02-14 14:00 | XMS_ITS | Clinical Summary ---
Author Organization [facility] Address [address], [address] [address] Phone Care Team Providers Care Nitriles Lab Technician Name Role Phone Unavailable Primary Care Provider Unavailabl e Allergies No known active allergies Medications No known medications Active Problems No known active problems Social History Tobacco Use Types Packs/Day Years Used Date Smoking Tobacco: Never Assessed Comments Unknown Sex and Gender Information Value Date Recorded Sex Assigned at Not on file Legal Sex Female 9:07 PM CDT Gender Identity Not on file Sexual Orientation Not on file Plan of Treatment Health Maintenance Due Date Last Done Comments Hepatitis C Virus (HCV) Screening 1955 TdaP Immunization 1955 Cologuard 11/15/2000 Colonoscopy 11/15/2000 Colorectal Cancer Screening 11/15/2000 Immunochemical Fecal Occult Blood 11/15/2000 Pneumococcal Immunization (5 0+ years) (1 of 1 - PCV) 11/15/2005 Zoster Immunization (1 of 2) 11/15/2005 Influenza Immunization (#1) 2025 SARS-COV-2 Immunization ( - 2023-25 season) 2025 Respiratory Syncytial Virus (RSV) Immunization (Adult) (1 - 1-dose 75+ series) 11/15/2030 Hepatitis B Immunization Aged Out No longer eligible based on patient's age to complete this topic Human Papillomavirus (HPV) Immunization Aged Out No longer eligible b ased on patient's age to complete this topic Meningococcal Immunization (ACWY) Aged Out No longer eligible based on patient's age to complete this topic Rotavirus Immunization Aged Out No lo nger eligible based on patient's age to complete this topic Insurance [facility]
--- OUTSIDE RECORDS SUMMARY | 2025-02-14 14:00 | XMS_ITS | Clinical Summary ---
Author Organization [facility] Address [address] [place] [address] Care Team Providers Care Cement Loader Name Role Phone Gabo Lemus MD Primary Care Provider [phone] Allergies Active Allergy Reactions Criticality Noted Date Comments Tramadol Headache,Itching,Rash Low 07/17/2022 Medications WEGOVY 2.4 mg/dose injection (PEN) Inject 2.4 mg into the skin every 7 days. wednesdays 3 Active Vitamin D, Ergocalciferol, 42432 units Cap Take 1 capsule by mouth every 7 days. On mondays Active amLODIPine (NORVASC) 5 MG tablet Take 1 tablet (5 mg total) by mouth daily. 3 Active fexofenadine (CHIN) 180 MG tablet Take 1 tablet (180 mg total) by mouth daily. Active escitalopram (LEXAPRO) 20 MG tablet Take 1 tablet (20 mg total) by mouth nightly. 3 Active B complex-C Cap capsule Take 1 capsule by mouth daily. Active esomeprazole (NEXIUM) 20 MG capsule Take 1 capsule (20 mg total) by mouth every morning before breakfast. Active fluticasone propionate (FLONASE) 50 MCG/ACT nasal spray 1 spray by Nasal route daily. Active ibandronate (BONIVA) 150 MG tablet Take 1 tablet (150 mg total) by mouth every 30 (thirty) days. Active ALPRAZolam (XANAX) 0.25 MG tablet Take 1 tablet (0.25 mg total) by mouth daily as needed. 2 Active NON FORMULARY Cbd cream daily as needed Active albuterol sulfate HFA 108 (90 Base) MCG/ACT inhaler Inhale 2 puffs into the lungs every 6 (six) hours as needed for Wheezing. Active senna-docusate (SENOKOT-S) 8.6-50 MG tablet Take 1 tablet by mouth daily. 60 tablet 1 3 Active HYDROcodone-mo taminophen (NORCO) 5-325 MG tabletIndicatio ns:Acute Pain < 7 Day Supply,post op Take 1-2 tablets by mouth every 6 (six) hours as needed for Pain. Indications: Acute Pain < 7 Day Supply, post op 35 tablet 3 Active Active Problems Problem Noted Date Diagnosed Date S/P cervical spinal fusion 07/24/2022 Encounters Date Type Department Care Team Description 02/07/2025 8:38 AM CDT - 02/07/2025 11:59 PM CDT Hospital Encounter [facility] MRI [address] [place] [address] Ly Talamantes NP Discharge Disposition: Home or Self Care (Routine Discharge) 02/07/2025 Travel 01/27/2025 9:50 AM CDT - 01/27/2025 11:59 PM CDT Hospital Encounter [facility] [address] [place] [address] Teetee Sepulveda NP Discharge Disposition: Home or Self Care (Routine Discharge) 01/27/2025 Travel from Last 3 Months Family History Medical History Relation Comments Diabetes Brother Heart Disease Father 87 Kidney Stones Father Diabetes Maternal Grandfather Arthritis Mother Hypertension Mother Osteoporosis Mother Stroke Mother short term memory Mother Cancer Paternal Aunt ovarian Relation Status Comments Brother Father Maternal Grandfather Mother Alive Paternal Aunt Social History Tobacco Use Types Packs/Day Years Used Date Smoking Tobacco: Former Cigarettes 2019 Smokeless Tobacco: Never Tobacco Cessation:Counseling Given: Not Answered Alcohol Use Standard Drinks/Week Comments Yes 0 (1 standard drink = 0.6 oz pur e alcohol) only social Comments No Sex and Gender Information Value Date Recorded Sex Assigned at Female 07/11/2024 8:25 AM MEDICAL ASSISTANT FLOAT Legal Sex Female 3:54 PM MEDICAL ASSISTANT FLOAT Gender Identity Not on file Sexual Orientation Not on file Last Filed Vital Signs Vital Sign Reading Time Taken Comments Blood Pressure 126/62 07/25/2022 12:21 PM CDT Pulse 88 07/25/2022 12:21 PM CDT Temperature 36.8 C (98.2 F) 07/25/2022 7:57 AM CDT Respiratory Rate 19 07/25/2022 7:57 AM CDT Oxygen Saturation 97% 07/25/2022 12: 21 PM CDT Inhaled Oxygen Concentration - - Weight 59.3 kg (130 lb 11.7 oz) 07/24/2022 8:45 AM CDT Height 157.5 cm (5' 2) 07/24/2022 8:45 AM CDT Body Mass Index 23.91 07/24/2022 8:45 AM CDT Plan of Treatment Health Maintenance Due Date Last Done Comments Colorectal Cancer Screening Colonoscopy (10 Years) 1955 Hepatitis C 11/15/1973 DTaP, Tdap and Td Vaccines ( 1 - Tdap) 11/15/1974 Mammogram Screening 1995 Pneumococcal Vaccine: 50+ Years (1 of 1 - PCV) 11/15/2005 Zoster Vaccines (1 of 2) 11/15/2005 Annual Medicare Wellness Visit 11/15/2020 Dexa Scan (General) 11/15/2020 COVID-19 Vaccine (4 - 2024-2 6 season) 2025 04/10/2021, 08/03/2020, 07/13/2020 Influenza Adult (#1) 2025 03/01/2018, 03/11/2016 RSV Immunization or 60+ Years (1 - 1-dose 75+ series) 11/15/2030 Meningococcal B Vaccine Aged Out No l onger eligible based on patient's age to complete this topic Meningococcal Vaccine Aged Out No jessica arun eligible based on patient's age to complete this topic RSV Immunizations Under 20 Months Aged Out No longer eligible b ased on patient's age to complete this topic Goals Goal Patient Goal Type Associated Problems Recent Progress Patient-Stated? Author Family - family caregiver with be involved in care transitions and discharge planning Lifestyle No Robert Greer, RN Medical Devices Implanted Type Area Oysterman Device Identifier Shelf Expiration Date Model / Serial / Lot Graft Bone I Factor 1cc Allograft Putty Syringe - [id number] Implanted:Qty : 1 on 07/24/2022 by Khris Buck MD at [facility] Bone N/A: Spine Cervical CER[employer]ICS [id number] 07/08/2024 [id number] / / [id number] Zaviation Anterior Cervical Plate Implanted:Qty : 1 on 07/24/2022 by Khris Buck MD at [facility] Plate N/A: Spine Cervical 30-0112 / / Description:ZAVATION Orthofix Mini Ti Spacer Implanted:Qty : 1 on 07/24/2022 by Khris Buck MD at [facility] Spacer N/A: Spine Cervical ORTHOFIX [id number] 10/02/2026 [id number] / / 008 12mm Screw Implanted:Qty : 4 on 07/24/2022 by Khris Buck MD at [facility] N/A: Spine Cervical [id number] / / Explanted Type Area Oysterman Device Identifier Shelf Expiration Date Model / Serial / Lot Distration Pin 12mm - [id number] Explanted:Qty: 2 on 07/24/2022 at [facility] Pin N/A: Spine Cervical MED[employer] DP-[id number] / / Procedures Procedure Name Priority Date/Time Associated Diagnosis Comments CT ABD+PEL WWO CON Routine 01/27/2025 10 :11 AM CDT Epigastric pain Abdominal distension (gaseous) Eructation from Last 3 Months Results * CT ABD+PEL WWO CON (01/27/2025 10:11 AM CDT) Anatomical Region Laterality Modality Abdomen Computed Tomogra phy 01/27/2025 11:2 2 AM CDT Impressions 01/27/2025 3:56 PM CDT Impression: 1. Redemonstration of dilated common bile duct which appears stable since MRCP in 2022. 2. Bilateral L5 pars defect. 3. Colonic diverticula without evidence of diverticulitis. 4. 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 The attending radiologist has reviewed the image(s) and agrees with the content of this report. Ordered By: TEETEE SEPULVEDA Interpreted By: Angus Leblanc MD, 01/27/2025 11:22 AM Narrative 01/27/2025 3:56 PM CDT [address] [address] Examination: CT abdomen and pelvis with and without IV contrast. Exam time: 01/27/2025 9:50 AM Clinical Information: Epigastric pain. Bloating, gas, generalized discomfort for 8 months. Comparison:MRCP 04/17/2023 Technique: IV contrast: 100 mL Isovue 370.was administered without immediate complications. Oral contrast: None. Technical comments: Standard technique with sagittal and coronal reconstructions. Dose reduction: This CT exam was performed using dose lowering techniques, which may include, but is not limited to, dose reduction technique, automated exposure control, and/or the use of iterative reconstruction, in accordance with ALARA (As Low As Reasonably Achievable)/Image Gently principle. Findings: LOWER CHEST Heart is normal in size. The visualized portion of the lung bases are clear.No pleural or pericardial effusions. UPPER ABDOMEN Liver and bile ducts: The liver is normal in both size and contour.No focal liver lesion. Portal vein and hepatic veins are patent. Distended common bile duct appears relatively stable as compared to MRCP 04/17/2023. Gallbladder: Surgically absent. Pancreas: The pancreas has normal morphology without any peripancreatic inflammation. Spleen: The spleen is normal in size. RETROPERITONEUM Adrenals: The adrenal glands are normal in appearance. Kidneys: The kidneys have normal morphology and enhance symmetrically.There is no solid renal mass or hydronephrosis. Lymph nodes: No lymphadenopathy in the abdomen or pelvis. BOWEL AND PERITONEUM Stomach:The stomach has normal morphology Bowel: Normal in caliber and wall thickness. Colonic diverticula. Appendix:The appendix is normal. Free air or fluid: None. VASCULATURE Atherosclerotic aorta. 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 Visceral arteries and portal venous system are patent. PELVIS 3 cm left ovarian cyst. BONES/SOFT TISSUES Bilateral L5 pars defect. There are degenerative changes throughout the visualized spine. Procedure Note Rajesh Atwood MD - 01/27/[address] [address] Examination: CT abdomen and pelvis with and without IV contrast. Exam time: 01/27/2025 9:50 AM Clinical Information: Epigastric pain. Bloating, gas, generalizeddiscomfort for 8 months. Comparison:MRCP 04/17/2023 Technique: IV contrast: 100 mL Isovue 370.was administered without immediatecomplications. Oral contrast: None. Technical comments: Standard technique with sagittal and coronalreconstructions. Dose reduction: This CT exam was performed using dose lowering techniques,which may include, but is not limited to, dose reduction technique,automated exposure control, and/or the use of iterative reconstruction, inaccordance with ALARA (As Low As Reasonably Achievable)/Image Gentlyprinciple. Findings: LOWER CHEST Heart is normal in size. The visualized portion of the lung bases areclear.No pleural or pericardial effusions. UPPER ABDOMEN Liver and bile ducts: The liver is normal in both size and contour.Nofocal liver lesion. Portal vein and hepatic veins are patent. Distendedcommon bile duct appears relatively stable as compared to MRCP106/18/2022. Gallbladder: Surgically absent. Pancreas: The pancreas has normal morphology without any peripancreaticinflammation. Spleen: The spleen is normal in size. RETROPERITONEUM Adrenals: The adrenal glands are normal in appearance. Kidneys: The kidneys have normal morphology and enhancesymmetrically.There is no solid renal mass or hydronephrosis. Lymph nodes: No lymphadenopathy in the abdomen or pelvis. BOWEL AND PERITONEUM Stomach:The stomach has normal morphology Bowel: Normal in caliber and wall thickness. Colonic diverticula. Appendix:The appendix is normal. Free air or fluid: None. VASCULATURE Atherosclerotic aorta. Probable thrombosed dissection of the right commoniliac artery. Visceral arteries and portal venous system are patent. PELVIS 3 cm left ovarian cyst. BONES/SOFT TISSUES Bilateral L5 pars defect. There are degenerative changes throughout thevisualized spine. Impression: 1. Redemonstration of dilated [facility] 2. Bilateral L5 pars defect. 3. Colonic diverticula without evidence of diverticulitis. 4. 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 The attending radiologist has reviewed the image(s) and agrees with thecontent of this report. Ordered By: TEETEE SEPULVEDA Interpreted By: Angus Leblanc MD, 01/27/2025 11:22 AM us Teetee Sepulveda SENIOR TEST ANALYST CT Final Result from Last 3 Months Insurance MEDICARE [employer] LIFE Advance Directives * Full Code (Latest Code Status on File) Date Activated Date Inactivated Comments 07/24/2022 1:55 PM 07/25/2022 4:22 PM Care Teams Cement Loader Relationship Specialty Start Date End Date Gabo Lemus MD [address] [place] [address] PCP - General FAMILY PRACTICE 10/28/22
--- OUTSIDE RECORDS SUMMARY | 2025-02-14 14:00 | XMS_ITS | Clinical Summary ---
Author Organization [facility] Address [address] [place] [address] Care Team Providers Care Chemical Pumper Name Role Phone Gabo Lemus MD Primary Care Provider [phone] Allergies Active Allergy Reactions Criticality Noted Date Comments Tramadol Headache,Itching,Rash Medium 07/17/2022 Medications vitamin B comp and C no.3 25-96-85-5-300 mg capsule Take 1 capsule by mouth daily Active albuterol HFA (PROVENTIL HFA,VENTOLIN HFA,PROAIR HFA) 90 mcg/actuation inhaler INHALE 2 PUFFS EVERY 4 TO 6 HOURS FOR WHEEZING Active amLODIPine (NORVASC) 5 mg tablet Take 1 tablet (5 mg total) by mouth daily 3 Active ergocalciferol (VITAMIN D) 50,000 unit capsule Take 1 capsule (50,000 Units total) by mouth once a week Active escitalopram (LEXAPRO) 20 mg tablet Take 1 tablet (20 mg total) by mouth daily Active esomeprazole DR (NexIUM) 20 mg capsule Take 1 capsule (20 mg total) by mouth daily Active fexofenadine (CHIN) 180 mg tablet Take 1 tablet (180 mg total) by mouth as needed Active fluticasone propionate (FLONASE) 50 mcg/actuation nasal spray Administer 1 spray into affected nostril(s) as needed Active HYDROcodone-om taminophen (NORCO) 5-325 mg per tablet Take 1-2 tablets by mouth every 6 (six) hours as needed 3 Active ibandronate (BONIVA) 150 mg tablet Take 1 tablet (150 mg total) by mouth every 30 (thirty) days Active oxyBUTYnin (DITROPAN) 5 mg tablet 3 Active nabumetone (RELAFEN) 750 mg tablet Take 1 tablet (750 mg total) by mouth 2 (two) times a day 7 Active ALPRAZolam (XANAX) 0.25 mg tablet Take 1 tablet (0.25 mg total) by mouth daily as needed 2 Active gabapentin (NEURONTIN) 100 mg capsule Take 3 capsules (300 mg total) by mouth nightly Take 100mg at bedtime for 1 week then increase by 100mg every week until taking 300mg nightly. 90 capsule 11 4 Active Active Problems Problem Noted Date Diagnosed Date Gastroesophageal reflux disease without esophagi tis 06/24/2023 Abdominal pain, chronic, left upper quadrant Surgical History Surgery Date Site/Laterality Comments COLONOSCOPY CHOLECYSTECTOMY ANTERIOR CERVICAL DISCECTOMY W/ FUSION 2022 Medical History Medical History Date Comments GERD (gastroesophageal reflux disease) Colon polyp Coronary artery disease COPD (chronic obstructive pulmonary disease) Social History Tobacco Use Types Packs/Day Years Used Date Smoking Tobacco: Former Cigarettes 1 20 Tobacco Cessation:Counseling Given: Not Answered AUDIT-C Answer Date Recorded Q1: How often do you have a drink containing alc ohol? Monthly or less 05/26/2023 Q2: How many drinks containi ng alcohol do you have on a typical day when you are drinking? 1 or 2 05/26/2023 Q3: How often do you have si x or more drinks on one occasion? Never 05/26/2023 Personal Safety Answer Date Recorded Have you ever been in or are you currently in a harmful physical or emotional relationship or is someone making you feel afraid or unsafe? Denies 05/26/2023 Comments No Sex and Gender Information Value Date Recorded Sex Assigned at Not on file Legal Sex Female 10:43 AM VP PUBLISHER DEVELOPMENT Gender Identity Not on file Sexual Orientation Not on file Obstetrics History Last Filed Vital Signs Vital Sign Reading Time Taken Comments Blood Pressure 143/79 06/23/2023 7:54 AM VP PUBLISHER DEVELOPMENT Pulse 73 06/23/2023 7:54 AM VP PUBLISHER DEVELOPMENT Temperature 36.3 C (97.3 F) 05/26/2023 11:39 AM VP PUBLISHER DEVELOPMENT Respiratory Rate 20 05/26/2023 12:09 PM VP PUBLISHER DEVELOPMENT Oxygen Saturation 98% 06/23/2023 7:54 AM VP PUBLISHER DEVELOPMENT Inhaled Oxygen Concentration - - Weight 60 kg (132 lb 3.2 oz) 06/23/2023 7:54 AM VP PUBLISHER DEVELOPMENT Height 154.9 cm (5' 1) 06/23/2023 7:54 AM VP PUBLISHER DEVELOPMENT Body Mass Index 24.98 06/23/2023 7:54 AM VP PUBLISHER DEVELOPMENT Plan of Treatment Health Maintenance Due Date Last Done Comments Breast Cancer Screening-Mammogram 1955 Colon Cancer Screening-Colonoscopy 1955 Depression Screening 1955 Hepatitis C Screening 1955 Osteoporosis Screening-Bone Density Scan 1955 DTaP/Tdap/Td Vaccine (1 - Tdap) 11/15/1966 Hepatitis B Screening 11/15/1973 Pneumococcal vaccine 65+ (1 of 1 - PCV) 11/15/2005 Zoster Vaccine (1 of 2) 11/15/2005 Well Visit 65+ 11/15/2020 Fall Risk Assessment 05/26/2024 05/26/2023 Covid-19 Vaccine (5 - 2024-2 6 season) 2025 03/02/2023, 04/10/2021, 08/03/2020, Additional history exists Influenza Vaccine (#1) 2025 03/02/2023, 2017 [place] [address] [facility] MEDICARE Care Teams Chemical Pumper Relationship Specialty Start Date End Date Gabo Lemus MD PCP - General Family Practice 05/18/23
--- OUTSIDE RECORDS SUMMARY | 2025-02-14 14:00 | XMS_ITS | Clinical Summary ---
Author Organization [facility] Address [address] [place] [address] Care Team Providers Care Egg Crater Name Role Phone Tim Pham MD Primary Care Provider Abhishek Jones MD Unavailable Source Comments [facility],non-owned Affiliates and Associated Physician Practices is amultiple site organization consisting of ambulatory clinics and hospital sitesin [place], [place], [place] and [place]. This disclosure is being madepursuant to the Care Everywhere program and may not contain all information available regarding this patient. Last updated 18.[facility] Allergies No known active allergies Medications * Be aware that medications may not be up to date on this document. Alwaysverify current medications with the patient. 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 Social History Tobacco Use Types Packs/Day Years Used Date Smoking Tobacco: Never Assessed Comments Unknown Sex and Gender Information Value Date Recorded Sex Assigned at Not on file Legal Sex Female 1:24 PM CDT Gender Identity Not on file Sexual Orientation Not on file Last Filed Vital Signs Vital Sign Reading Time Taken Comments Blood Pressure - - Pulse - - Temperature - - Respiratory Rate - - Oxygen Saturation - - Inhaled Oxygen Concentration - - Weight 68.9 kg (152 lb) 11/21/2016 11:22 AM CDT Height 154.9 cm (5' 1) 11/21/2016 11:22 AM CDT Body Mass Index 28.72 11/21/2016 11:22 AM CDT Plan of Treatment Health Maintenance Due Date Last Done Comments BONE DENSITY TESTING 1955 COLOGUARD (AGES 45-75) - COL ON CA SCREENING 1955 COLON MONITORING 1955 COLONOSCOPY - COLON CA SCREENING 1955 CT COLONOGRAPHY - COLON CA SCREENING 1955 Colorectal Cancer Screening 1955 FIT - COLON CA SCREENING 1955 FLEX SIG - COLON CA SCREENING 1955 LIPID TESTING 1955 MAMMOGRAM 1955 HEPATITIS C SCREENING 11/11/1973 DTAP/TDAP/TD VACCINES (1 - Tdap) 11/15/1974 PNEUMOCOCCAL VACCINE 50+ (1 of 1 - PCV) 11/15/2005 ZOSTER VACCINE (1 of 2) 11/15/2005 SCREENING FOR DIABETES 11/21/2016 DEPRESSION SCREENING 05/11/2024 COVID-19 VACCINE (1 - 2023-2 5 season) 2025 INFLUENZA VACCINE (#1) 2025 Respiratory Syncytial Virus (RSV) Vaccine Pt: or over 60 yrs (1 - 1-dose 75+ series) 11/15/2030 HEPATITIS B VACCINE Aged Out No longe r eligible based on patient's age to complete this topic HIB VACCINE Aged Out No longer eligi ble based on patient's age to complete this topic HPV VACCINE Aged Out No longer eligi ble based on patient's age to complete this topic MENINGOCOCCAL (Group B) VACC INE SHARED DECISION-MAKING Aged Out No longer eligibl e based on patient's age to complete this topic MENINGOCOCCAL GROUPS A/C/Y/W VACCINE Aged Out No longer eligible b ased on patient's age to complete this topic Insurance ANTH Care Teams Egg Crater Relationship Specialty Start Date End Date Tim Pham MD PCP - General Internal Medicine 11/21/16 [place] [id number] [address] [address] Orthopedic Surgery 11/21/16
--- OUTSIDE RECORDS SUMMARY | 2025-02-14 14:00 | XMS_ITS | Patient Health Record ---
Author Organization [facility] Address [address] [facility] [address] [place] [address] Support Name Relationship Address Phone [place] OLIV[place] Guarantor Unknown Unavailable Reason For Referral No Information Plan Of Treatment No Information
--- OUTSIDE RECORDS SUMMARY | 2025-02-14 14:00 | XMS_ITS | Clinical Summary ---
Author Organization [facility] Address [address] [facility] Attn: Epic Prelude ADT [place] [address] Care Team Providers Care Satellite Dish Technician Name Role Phone Tim Pham MD Primary Care Provider [phone] Social History Tobacco Use Types Packs/Day Years Used Date Smoking Tobacco: Never Assessed Comments Unknown Sex and Gender Information Value Date Recorded Sex Assigned at Not on file Legal Sex Female 10:34 AM SEAT COVERS TRIMMER Gender Identity Not on file Sexual Orientation Not on file Plan of Treatment Health Maintenance Due Date Last Done Comments DTAP/TDAP/TD VACCINES (1 - Tdap) 11/15/1974 FIT-DNA Q 3 years 11/15/2000 FIT/FOBT Q 1 year 11/15/2000 Flex Sig/CT Colonography Q 5 years 11/15/2000 PNEUMOCOCCAL VACCINE 50+ YEA RS (1 of 1 - PCV) 11/15/2005 ZOSTER VACCINE (1 of 2) 11/15/2005 BREAST CANCER SCREENING 12/27/2020 12/28/19, 12/28/2019, 12/03/2018, Additional history exists OSTEOPOROSIS SCREENING 12/04/2023 12/03/2018, 2016 INFLUENZA VACCINE (#1) 2024 COLORECTAL SCREENING 04/12/2030 04/12/2020 Colorectal Cancer Screening 04/12/2030 RSV VACCINE (60+ or ) (1 - 1-dose 75+ series) 11/15/2030 Care Teams Satellite Dish Technician Relationship Specialty Start Date End Date Tim Pham MD [address] [facility] [address] [place] [address] PCP - General Internal Medicine 12/10/18
--- OUTSIDE RECORDS SUMMARY | 2025-02-14 14:00 | XMS_ITS | Encounter Summary ---
Author Organization [facility] Address [address] [place] [address] Care Team Providers Care Special Delivery Carrier Name Role Phone Tim Pham MD Primary Care Provider Unavail able Abhishek Mccrary MD Unavailable [phone] Encounter Details Date Type Department Care Team (Late st Contact Info) Description 12/22/2016 [facility] Outpatient Visit [facility] [id number] [place] [id number] Unknown, Provider Social History Tobacco Use Types Packs/Day Years Used Date Smoking Tobacco: Never Assessed Comments Unknown Sex and Gender Information Value Date Recorded Sex Assigned at Not on file Legal Sex Female 1:24 PM CDT Gender Identity Not on file Sexual Orientation Not on file documented as of this encounter Plan of Treatment Not on file documented as of this encounter Visit Diagnoses Not on filedocumented in this encounter Care Teams Special Delivery Carrier Relationship Specialty Start Date End Date Tim Pham MD PCP - General Internal Medicine 11/21/16 [place]rary [place] [id number] [place] [id number] Orthopedic Surgery 11/21/16 documented as of this encounter
== END 2025-02-14 13:00 | disposition home or self-care (01) ==
LOC: ANHCARD 13:07
PROVIDERS: PCP Family Medicine; Visit Provider Family Medicine
DX: R07.9 Chest pain, unspecified (principal); Z82.49 Family history of ischemic heart disease and other diseases of the circulatory system; I45.10 Unspecified right bundle-branch block
CPT/HCPCS: 93005

== ENCOUNTER 2025-03-21 09:47 | Outpatient (CLI) | payer MEDICARE, SELFPAY ==
--- NOTE | ~2025-03-21 | US_ITS ---
EXAMINATION: US transvaginal, 03/21/2025 10:00 MIGRANT LEADER HISTORY: F/U ovarian cyst Comparison: Comparison 06/12/2023. Technique: Brooks-scale and color Doppler images were obtained. Findings: Uterus: Uterus anteverted 8 4.7 x 2.4 x 3.3 cm. . Endometrium 3 mm. Right Ovary:Right ovary not identified due to bowel gas. Left Ovary: Left ovary 3.2 x 2.1 x 3.3 cm, there is a cystic focus 2.6 x 2.1 cm. Free Fluid: None Impression: 1. Cystic left ovarian lesion in this postmenopausal patient cystic ovarian neoplasm is not excluded. This however appears decreased in size compared to the prior study and may represent a postmenopausal atrophic cyst. Continued follow- up is warranted to assess. Reviewed, dictated and finalized at location P. ANT LEADER Impression: 1. Cystic left ovarian lesion in this postmenopausal patient cystic ovarian vin plasm is not excluded. This however appears decreased in size compared to the p wellsviller study and may represent a postmenopausal atrophic cyst. Continued follow-u p is warranted to assess.
== END 2025-03-21 09:48 | disposition home or self-care (01) ==
LOC: MICIMG 09:50
PROVIDERS: PCP Family Medicine; Visit Provider Obstetrics & Gynecology Gynecology
DX: N83.202 Unspecified ovarian cyst, left side (principal)
CPT/HCPCS: 76830